=== PATIENT | male | born 1975 | race Native Hawaiian/Other Pacific Islander ===

== ENCOUNTER 2017-06-19 14:07 | Emergency (ER) | payer MEDICAID, MEDICARE ==
[2017-06-19 14:32] VITALS: BP 167/78; PULSE 107; RESP 18; TEMP 97.7
--- NOTE | 2017-06-19 15:03 | ED ---
General Adult HPI - General Chief complaint: Psychiatric Symptoms Stated complaint: Mental Health Time Seen by Provider: 06/19/17 14:50 Source: patient, family, RN notes reviewed Mode of arrival: ambulatory Limitations: no limitations - History of Present Illness Initial comments: 42-year-old male presents to the emergency department brought by his grandmother. The patient decided to go for a walk last night and woke up he was at home so she filed a police report. She states that he was then picked up by the police and they brought him here. The patient does suffer from schizophrenia he sees his psychiatrist. He denies any suicidal or homicidal thoughts. He states in the past he has heard voices but he is currently not hearing voices. He states he almost has a symptoms clearly at this point. The grandmother states that she was concerned because he just left the house and just decided to go for walk and he normally tells or where he is going. She states he has not expressed any suicidal or homicidal ideation to her. He denies any suicidal or homicidal ideation at this time. They state that they came here because he is currently being worked up with [facility] in the grandmother was concerned because he just decided to leave the house without his cell phone and that made her nervous.Patient denies any recent fever, chills, shortness of breath, chest pain, back pain, abdominal pain, nausea vomiting, numbness or tingling, dysuria or hematuria, constipation or diarrhea, headaches or visual changes, or any other current symptoms. - Related Data Home Medications Medication Instructions Recorded Confirmed Benztropine Mesylate [Cogentin] 2 mg PO BID 06/19/17 06/19/17 Paliperidone IM [Invega Sustenna] 234 mg IM Q28D 06/19/17 06/19/17 Allergies Allergy/AdvReac Type Severity Reaction Status Date / Time Penicillins Allergy Unknown Verified 06/19/17 14:38 Review of Systems ROS Statement: Those systems with pertinent positive or pertinent negative responses have been documented in the HPI. ROS Other: All systems not noted in ROS Statement are negative. Past Medical History Past Medical History: No Reported History History of Any Multi-Drug Resistant Organisms: None Reported Past Surgical History: No Surgical Hx Reported Past Psychological History: Anxiety, Bipolar, Depression, Panic Disorder, Schizoaffective Disorder, Schizophrenia Smoking Status: Current every day smoker Past Alcohol Use History: Daily Past Drug Use History: None Reported General Exam Limitations: no limitations General appearance: alert, in no apparent distress ENT exam: Present: normal exam, mucous membranes moist Neck exam: Present: normal inspection. Absent: tenderness, meningismus, lymphadenopathy Respiratory exam: Present: normal lung sounds bilaterally. Absent: respiratory distress, wheezes, rales, rhonchi, stridor Cardiovascular Exam: Present: regular rate, normal rhythm, normal heart sounds. Absent: systolic murmur, diastolic murmur, rubs, gallop, clicks Extremities exam: Present: normal inspection, full ROM, normal capillary refill. Absent: tenderness, pedal edema, joint swelling, calf tenderness Back exam: Present: normal inspection Neurological exam: Present: alert, oriented X3 Psychiatric exam: Present: normal affect, normal mood. Absent: homicidal ideation, suicidal ideation Skin exam: Present: warm, dry, intact, normal color. Absent: rash Course Vital Signs 06/19/17 14:28 Temperature 97.7 F Pulse Rate 107 H Respiratory 18 Rate Blood Pressure 167/78 O2 Sat by Pulse 99 Oximetry Medical Decision Making - Medical Decision Making 42-year-old male presents for leaving the house. This time he has not suicidal homicidal milligram a CT is not suicidal or homicidal. The grandmother states she feels control taking patient home and he does contract to safety. They do not want to see psych. They're hoping that we could find him quick placement to live somewhere else. At this time he has a follow-up appointment with psychiatrist tomorrow. We did discuss return parameters. We did discuss all the patient and family's questions. He stated he understood. They'll be discharged. Disposition Clinical Impression: Chronic schizophrenia Disposition: HOME SELF-CARE Condition: Stable Instructions: Schizophrenia (ED), Suicide Prevention for Adults (ED) Additional Instructions: Please use medication as discussed. Please follow up with family doctor if symptoms have not improved over the next two days. Please return to the emergency room if your symptoms increase or worsen or for any other concerns. Please return to the emergency department immediately if he developed any suicidal or homicidal thoughts follow-up with your psychiatrist in the morning. Referrals: Suraj Padgett DO [Primary Care Provider] - 1-2 days Time of Disposition: 15:02
== END 2017-06-19 15:07 | disposition home or self-care (01) ==
LOC: EC 14:07
DX: F20.9 Schizophrenia, unspecified (principal); F17.200 Nicotine dependence, unspecified, uncomplicated; Z79.899 Other long term (current) drug therapy; Z88.0 Allergy status to penicillin
CPT/HCPCS: 99283

== ENCOUNTER → 2019-09-26 | Outpatient (CLI) | payer MEDICARE ==
[2019-09-26 20:26] LABS: HIV 1 AB Non-Reactive (Non-Reactive); HIV 2 AB Non-Reactive (Non-Reactive); HIV AB P24 Non-Reactive (Non-Reactive); HIV P24 AG Non-Reactive (Non-Reactive)
[2019-09-26 21:45] LABS: Hepatitis B Surface Antigen Non-Reactive (Non-Reactive); Hepatitis C IgG Antibody Non-Reactive (Non-Reactive)
== END | disposition home or self-care (01) ==
LOC: LABMAIN 13:38
PROVIDERS: ATTEND Family Medicine
DX: Z11.4 Encounter for screening for human immunodeficiency virus [HIV] (principal); Z11.8 Encounter for screening for other infectious and parasitic diseases
CPT/HCPCS: 36415; 86803; 87340; 87390

== ENCOUNTER 2024-06-27 00:44 | Inpatient (IN) | payer MEDICARE ==
[2024-06-27] MEDS: SODIUM CHLORIDE 0.9% 1,000 ML IV ONE (01:17)
[2024-06-27 01:18] LABS: Basophils % (A) 0 %; Eosinophils # (A) 0.1 k/uL (0-0.7); Eosinophils % (A) 1 %; HCT 49.9 % (39.0-53.0); HGB 17.4 gm/dL (13.0-17.5); Lymphocytes % (A) 29 %; MCH 35.2 pg (25.0-35.0); MCHC 34.9 g/dL (31.0-37.0); Mean Platelet Volume 8.3; Monocytes # (A) 0.8 k/uL (0-1.0); Monocytes % (A) 8 %; Neutrophils # (A) 6.3 k/uL (1.3-7.7); Neutrophils % (A) 60 %; Platelet Count 193 k/uL (150-450); RBC 4.94 m/uL (4.30-5.90); RDW 12.7 % (11.5-15.5); WBC 10.5 k/uL (3.8-10.6)
--- NOTE | 2024-06-27 01:54 | ED ---
General Adult HPI - General Chief complaint: Fall Stated complaint: ETOH Time Seen by Provider: 06/27/24 00:48 Source: patient, EMS, RN notes reviewed, old records reviewed Mode of arrival: EMS Limitations: no limitations - History of Present Illness Initial comments: 49-year-old male presents with alcohol intoxication, unsteady gait. Patient had apparently tripped and fallen down several stairs. Patient denies falling downstairs, he does admit to minor fall. Denies head or neck trauma. Denies any pain complaint. He is intoxicated and admits to drinking alcohol today. He states he is unsteady on his feet. Denies headache. Denies neck pain. Denies chest or abdominal pain. - Related Data Previous Rx's Medication Instructions Recorded Benztropine Mesylate [Cogentin] 0.5 mg PO BID #28 tab 07/23/17 LORazepam [Ativan] 1 mg PO TID PRN #42 tab 07/23/17 Paliperidone IM [Invega Sustenna] 156 mg IM QMONTH #1 syr 07/23/17 Paliperidone [Paliperidone ER] 9 mg PO DAILY #14 tab.er.24 07/23/17 Allergies Allergy/AdvReac Type Severity Reaction Status Date / Time Penicillins Allergy Unknown Verified 06/21/17 09:58 Review of Systems ROS Statement: Those systems with pertinent positive or pertinent negative responses have been documented in the HPI. ROS Other: All systems not noted in ROS Statement are negative. Past Medical History Past Medical History: No Reported History History of Any Multi-Drug Resistant Organisms: None Reported Past Surgical History: No Surgical Hx Reported Past Psychological History: Anxiety, Bipolar, Depression, Panic Disorder, Schizoaffective Disorder, Schizophrenia Past Alcohol Use History: Daily Past Drug Use History: None Reported General Exam General appearance: alert, in no apparent distress, appears intoxicated Head exam: Present: atraumatic, normocephalic Eye exam: Present: normal appearance, PERRL ENT exam: Present: normal exam Neck exam: Present: normal inspection. Absent: tenderness, meningismus Respiratory exam: Present: normal lung sounds bilaterally. Absent: respiratory distress, wheezes Cardiovascular Exam: Present: regular rate, normal rhythm GI/Abdominal exam: Present: soft. Absent: distended, tenderness, guarding Extremities exam: Present: normal inspection, normal capillary refill Neurological exam: Present: alert, oriented X3, CN II-XII intact. Absent: normal gait, motor sensory deficit Psychiatric exam: Present: normal affect, normal mood Skin exam: Present: warm, dry, intact Course Vital Signs 06/27/24 06/27/24 06/27/24 00:45 02:50 04:00 Temperature 97.6 F Pulse Rate 101 H 95 92 Respiratory 18 18 18 Rate Blood Pressure 115/77 115/83 101/75 O2 Sat by Pulse 94 L 99 95 Oximetry 06/27/24 06:19 Temperature Pulse Rate 95 Respiratory 18 Rate Blood Pressure 127/97 O2 Sat by Pulse 96 Oximetry Medical Decision Making - Medical Decision Making Was pt. sent in by a medical professional or institution (, [facility], [facility] [facility], urgent care, hospital, or correction...) When possible be specific @ -No Did you speak to anyone other than the patient for history (EMS, parent, family, police, friend...)? What history was obtained from this source @ -No Did you review nursing and triage notes (agree or disagree)? Why? @ -I reviewed and agree with nursing and triage notes Were old charts reviewed (outside hosp., previous admission, EMS record, old EKG, old radiological studies, urgent care reports/EKG's, correction records)? Report findings @ -No old charts were reviewed Differential Diagnosis (chest pain, altered mental status, abdominal pain women, abdominal pain men, vaginal bleeding, weakness, fever, dyspnea, syncope, headache, dizziness, GI bleed, back pain, seizure, CVA, palpatations, mental health, musculoskeletal)? @ -Not applicable EKG interpreted by me (3pts min.). @ -[Sinus rhythm, incomplete right bundle branch block, rate of 90, NV interval 144, QRS duration 114, QTc 424 X-rays interpreted by me (1pt min.). @ -None done CT interpreted by me (1pt min.). @ -None done U/S interpreted by me (1pt. min.). @ -None done What testing was considered but not performed or refused? (CT, X-rays, U/S, labs)? Why? @ -None What meds were considered but not given or refused? Why? @ -None Did you discuss the management of the patient with other professionals (professionals i.e. , PA, WAX BLENDER, lab, RT, psych nurse, social service liaison, shipping inspector, teacher, systems support officer, ed case manager)? Give summary @ -[Dr. Smith Was smoking cessation discussed for >3mins.? @ -No Was critical care preformed (if so, how long)? @ -No Were there social determinants of health that impacted care today? How? (Homelessness, low income, unemployed, alcoholism, drug addiction, transportation, low edu. Level, literacy, decrease access to med. care, usp, rehab)? @ -No Was there de-escalation of care discussed even if they declined (Discuss DNR or withdrawal of care, Hospice)? DNR status @ -No What co-morbidities impacted this encounter? (DM, HTN, Smoking, COPD, CAD, Cancer, CVA, ARF, Chemo, Hep., AIDS, mental health diagnosis, sleep apnea, morbid obesity)? @ -[Alcohol abuse Was patient admitted / discharged? Hospital course, mention meds given and route, prescriptions, significant lab abnormalities, going to OR and other pertinent info. @ -49-year-old male presenting with alcohol intoxication, unsteady gait. No limb ataxia. No focal neurologic findings. Stable vitals. Patient given IV fluids. I did obtain laboratory testing and alcohol level. His alcohol level is 236. He has a sodium of 126 and a potassium of 2.9. He is given IV fluids and potassium replacement. He will be admitted for hydration and symptom control. Undiagnosed new problem with uncertain prognosis? @ -No Drug Therapy requiring intensive monitoring for toxicity (Heparin, Nitro, Insulin, Cardizem)? @ -No Were any procedures done? @ -No Diagnosis/symptom? @ -[Alcohol intoxication, hyponatremia, hypokalemia Acute, or Chronic, or Acute on Chronic? @ -acute Uncomplicated (without systemic symptoms) or Complicated (systemic symptoms)? @ -Default Side effects of treatment? @ -No Exacerbation, Progression, or Severe Exacerbation? @ -No Poses a threat to life or bodily function? How? (Chest pain, USA, DC, pneumonia, PE, COPD, DKA, ARF, appy, cholecystitis, CVA, Diverticulitis, Homicidal, Suicidal, threat to staff... and all critical care pts) @ -No - Lab Data Result diagrams: 06/27/24 01:09 06/27/24 01:55 Lab Results 06/27/24 06/27/24 Range/Units 01:09 01:55 WBC 10.5 (3.8-10.6) k/uL RBC 4.94 (4.30-5.90) m/uL Hgb 17.4 (13.0-17.5) gm/dL Hct 49.9 (39.0-53.0) % MCV 101.0 H (80.0-100.0) fL MCH 35.2 H (25.0-35.0) pg MCHC 34.9 (31.0-37.0) g/dL RDW 12.7 (11.5-15.5) % Plt Count 193 (150-450) k/uL MPV 8.3 Neutrophils % 60 % Lymphocytes % 29 % Monocytes % 8 % Eosinophils % 1 % Basophils % 0 % Neutrophils # 6.3 (1.3-7.7) k/uL Lymphocytes # 3.0 (1.0-4.8) k/uL Monocytes # 0.8 (0-1.0) k/uL Eosinophils # 0.1 (0-0.7) k/uL Basophils # 0.0 (0-0.2) k/uL Sodium 126 L (137-145) mmol/L Potassium 2.9 L (3.5-5.1) mmol/L Chloride 78 L (98-107) mmol/L Carbon Dioxide 35 H (22-30) mmol/L Anion Gap 13 mmol/L BUN 13 (9-20) mg/dL Creatinine 1.06 (0.66-1.25) mg/dL Est GFR (CKD-EPI)AfAm >90 (>60 ml/min/1.73 sqM) Est GFR (CKD-EPI)NonAf 84 (>60 ml/min/1.73 sqM) Glucose 88 (74-99) mg/dL Calcium 8.2 L (8.4-10.2) mg/dL Total Bilirubin 1.0 (0.2-1.3) mg/dL AST 77 H (17-59) U/L ALT 30 (4-49) U/L Alkaline Phosphatase 70 (38-126) U/L Total Protein 6.2 L (6.3-8.2) g/dL Albumin 3.7 (3.5-5.0) g/dL Serum Alcohol 236 H* mg/dL Disposition Clinical Impression: Alcohol intoxication, Hypokalemia, Hyponatremia Disposition: ADMITTED IP TO THIS HOSP Condition: Stable Is patient prescribed a controlled substance at d/c from ED?: No Referrals: Suraj Padgett DO [Primary Care Provider] - 1-2 days Time of Disposition: 06:25
[2024-06-27 02:24] LABS: ALT 30 U/L (4-49); AST 77 U/L (17-59); African American GFR (CKD) >90 (>60 ml/min/1.73 sqM); Albumin 3.7 g/dL (3.5-5.0); Alkaline Phosphatase 70 U/L (38-126); Anion Gap 13 mmol/L; Blood Urea Nitrogen 13 mg/dL (9-20); Calcium 8.2 mg/dL (8.4-10.2); Carbon Dioxide 35 mmol/L (22-30); Chloride 78 mmol/L (98-107); Glucose 88 mg/dL (74-99); Non-African American GFR(CKD) 84 (>60 ml/min/1.73 sqM); Potassium 2.9 mmol/L (3.5-5.1); Sodium 126 mmol/L (137-145); Total Protein 6.2 g/dL (6.3-8.2)
[2024-06-27 02:34] LABS: Alcohol 236 mg/dL
[2024-06-27] MEDS: SODIUM CHLORIDE 0.9% 1,000 ML IV SCH (03:05)
[2024-06-27] MEDS: POTASSIUM CHLORIDE ER 20 MEQ TAB.ER PO STA (03:51)
[2024-06-27] MEDS: ONDANSETRON 4 MG/2 ML VIAL IVP STA (04:07)
[2024-06-27] MEDS: POTASSIUM CHLORIDE 10 MEQ in WATER FOR INJECTION 1 100ML.BAG IVPB SCH (04:07)
[2024-06-27] MEDS ORDERED: LORazepam 2 MG/ML INJ IV PRN ×3 (06:21)
[2024-06-27] MEDS ORDERED: NALOXONE 0.4 MG/ML 1 ML VIAL IV PRN (06:22)
[2024-06-27] MEDS ORDERED: ONDANSETRON 4 MG/2 ML VIAL IVP PRN (06:22)
[2024-06-27] MEDS: ENOXAPARIN 40 MG/0.4 ML SYRINGE SQ SCH (11:02)
[2024-06-27] MEDS: MULTIVITAMINS, THERA 1 EACH TAB PO SCH (11:03)
[2024-06-27] MEDS: PANTOPRAZOLE 40 MG TABLET PO SCH (11:03)
[2024-06-27] MEDS: THIAMINE 100 MG TAB PO SCH (11:03)
[2024-06-27] MEDS: NICOTINE 21MG/24HR PATCH TRANSDERM SCH (11:03)
[2024-06-27 11:07] LABS: African American GFR (CKD) >90 (>60 ml/min/1.73 sqM); Anion Gap 5 mmol/L; Blood Urea Nitrogen 10 mg/dL (9-20); Calcium 8.1 mg/dL (8.4-10.2); Carbon Dioxide 38 mmol/L (22-30); Chloride 82 mmol/L (98-107); Glucose 83 mg/dL (74-99); Non-African American GFR(CKD) >90 (>60 ml/min/1.73 sqM); Sodium 125 mmol/L (137-145)
[2024-06-27 11:22] LABS: Potassium 2.6 mmol/L (3.5-5.1)
[2024-06-27] MEDS: CALCIUM CARBONATE 500 MG CHEWABLE PO SCH (11:46)
[2024-06-27] MEDS: POTASSIUM CHLORIDE ER 20 MEQ TAB.ER PO SCH (13:04)
[2024-06-27] MEDS: METOCLOPRAMIDE 10 MG TAB PO SCH (13:04)
[2024-06-27] MEDS: ACETAMINOPHEN TAB 325 MG TAB PO PRN (13:04)
--- NOTE | 2024-06-27 14:25 | P.CN ---
Psychiatric Consult - . Consult date: 06/27/24 Consult:: 06/27/24 14:16 IDENTIFYING DATA: This patient is a 49-year-old male, currently living with his grandmother who is also his guardian, on disability REASON FOR REFERRAL: Psychiatry was consulted for petitioned by [facility] HISTORY OF PRESENT ILLNESS: The patient presented to the hospital on 06/27 with a chief complaint of a fall. Patient reportedly fell down several stairs at home. Alcohol level was elevated at 236. Labs revealed hyponatremia with a sodium of 126, hypokalemia with potassium at 2.6 and elevated AST at 77. EKG showed sinus rhythm, incomplete right bundle branch block, QTc 424. Patient was petitioned by his grandmother who is also his guardian which states, "Jefe not eating or very little. Jefe is drinking heavily, refusing injections. Yelling and swearing at grandmother. Refusing mental and physical health treatment." Patient seen and evaluated at bedside to which he states drinking a pint a day. Patient reports missing his appointment last week for his injection due to him having issues with his truck. Patient appeared precontemplative as he did not feel like he has an issue with alcohol and he does not wish to seek help for this as well. He has gone to rehab once however he did not find it effective. He reports drinking heavily for many years and he does not feel like it is a problem for him. Patient strongly encouraged to consider substance abuse treatment. Patient was agreeable with receiving his Prolixin DEC shot while he is in the hospital and will follow-up with [facility] outpatient. At this time patient denies any suicidal or homical ideations, intent or plan. Patient denies any visual hallucinations and denies any delusions however he reports chronic, stable auditory hallucinations that have not worsened since he missed his shot last week. Patients admits to using alcohol and cannabis and smokes 1 pack/day of cigarettes PAST PSYCHIATRIC HISTORY: Patient has a a history of schizophrenia. Patient is currently on Prolixin DEC 50 mg IM every 2 weeks, last received on 06/04. Thaddeus meraz reports being on "every single psychotropic medication" and he has not found any super effective however he reports stable symptoms. Patient's grandmother is his guardian. Patient reports 5-6 past inpatient hospitalizations but denies any past suicide attempts. Patient sees Dr. Ferguson at [facility]. PAST MEDICAL HISTORY: Denies. ALLERGIES: as per EMR. CHEMICAL DEPENDENCY HISTORY: as per HPI. FAMILY PSYCHIATRIC/SUBSTANCE USE HISTORY: Denies SOCIAL HISTORY: Patient currently lives with his grandmother who is also his guardian. He is single and has no children. Highest level of education is 12th grade. MENTAL STATUS EXAM: General Appearance: Patient appears to be stated age is alert, pleasant, and cooperative. Patient appears to have poor hygiene and grooming wearing hospital gown with fair eye contact. Behavior: Patient is calmly lying in bed without any agitated behavior. Speech: Patient's speech is fluent and nonpressured. Mood/Affect: Patient reports their mood is "okay", affect is congruent, constricted Suicidality/Homicidality: Patient denies having any suicidal or homicidal ideation intent or plan. Perceptions: Patient denies any visual hallucinations but reports stable chronic auditory hallucinations however patient did not appear to be responding to internal stimuli during encounter Though content/process: There is no evidence of any delusional thought content and thought process is linear and goal-directed. Memory and concentration: AOX3, grossly intact for the purposes of this session. Can spell "WORLD" backwards Judgment and insight: Poor IMPRESSIONS: Schizophrenia Alcohol use disorder, severe Cannabis use disorder Nicotine dependence PLAN: -At this time patient DOES NOT meet criteria for inpatient psychiatric admission. -Would recommend the following medication changes/additions: Prolixin decanoate 50 mg IM given today as patient missed his last injection last week. Next dose will be due on 07/11 -CIWA protocol with PRN Ativan for alcohol withdrawal. Continue to monitor vital signs. -Can discontinue 1:1 sitter at this time as patient is not currently an imminent threat to themselves -tube worker to provide patient with outpatient mental health/psychiatry resources for appropriate follow up upon discharge. Discussed with case management regarding setting up an appointment with Dr. Ferguson at [facility] upon discharge -Microbiology Teacher spoke with patient about substance abuse and the harmful effects on medical and mental health, patient verbally understood and agreed. -tube worker to provide patient substance use treatment resources including AA/NA meetings in the community. -tube worker to provide patient with access line number to call for inpatient substance rehab -Communicated plan to patient's nurse -Psychiatry will sign off at this time -Please contact with any questions.
[2024-06-27] MEDS: fluPHENAZine DECANOATE 25 MG/ML 5ML MDV IM ONE (15:06)
--- NOTE | 2024-06-27 15:28 | P.HPIM ---
History of Present Illness H&P Date: 06/27/24 Chief Complaint: Alcohol intoxication This is a 49-year-old patient, follows with Dr. Padgett. Extensive psychiatry history of schizophrenia, bipolar, panic disorder. Does follow with [facility] with Dr. Ferguson. Lives with his grandmother. On disability because of schizophrenia. Longstanding alcohol drinker. Patient not show I called to the hospital. He feels his grandmother r called the EMS. Per the EMS run sheet: Patient was sitting outside. Patient had earlier falling down 7-10 stairs in the evening. There is no loss of consciousness. And grandmother requested the transport to the hospital. Patient denies any pain. In the head or neck. No focal wea kness. Longstanding alcohol drinker. Drinks a pint a day for close to 21 years. Has been to rehab in the remote past. Has a cough. Has been having nausea vomiting. Some wheezing. Some congested cough. Clear sputum. Patient does complain of anxiety depression. No suicidal. Patient's grandmother has petitioned the patient. Psychiatry consulted. Review of systems: GEN.: Tired EYES: None HEENT: None NECK: None RESPIRATORY: [Short of breath and cough CARDIOVASCULAR: None GASTROINTESTINAL: Nausea vomiting e GENITOURINARY: None MUSCULOSKELETAL: None LYMPHATICS: None HEMATOLOGICAL: None PSYCHIATRY: Bit anxious e NEUROLOGICAL: None Social history: Lives at home with his grandmother. Is on disability because of schizophrenia. Smokes a pack a day for close to 27 years. Drinks a pint of vodka pretty much daily since the age of 43. Physical examination: VITAL SIGNS: 98.1, 105, 16, 119/79, 96% room GENERAL: [Significant bed. A bit anxious. Congested cough. Throwing up EYES: Pupils equal. Conjunctiva babar l. HEENT: External appearance of nose and ears normal, oral cavity grossly normal. NECK: JVD not raised; masses not palpable. HEART: First and second heart sounds are normal; no edema. LUNGS: Respiratory rate increased, decreased breath sound prolonged expiration some wheezing. ABDOMEN: Soft, nontender, liver spleen not palpable, no masses palpable. PSYCH: [Alert and oriented x3; mood and affect anxious. MUSCULOSKELETAL:No Clubbing/cyanosis;muscles-grossly intact NEUROLOGICAL: Cranial nerves grossly intact; no facial asymmetry, power and sensation grossly intact. Some tremors LYMPHATICS: No lymph nodes palpable in the axilla and neck INVESTIGATIONS, reviewed in the clinical context: June 27, 2024: Sodium 125 potassium 2.6 BUN 10 creatinine 0.92 June 27: Sodium 126 potassium 2.9 serum alcohol 236 white count 10.5 h emoglobin 17.4 platelets 193 EKG tracing personally reviewed by me-normal sinus rhythm. Right bundle jose block, incomplete Assessment plan: -Acute alcohol intoxication causing metabolic encephalopathy on presentation patient did not remember how he got here. Admission alcohol level greater than 400. Will watch for withdrawals. -Patient fell about 7-9 stairs as reported by the grandmother to the EMS. Has no focal weakness or pain. Will get a CT scan of the head and CT scan cervical spine. -Alcohol use disorder patient is been drinking alcohol for close to 21 years. In the remote past has had to 1 chance at rehab. Thiamine. Multivitamin. -Acute COPD exacerbation in a current smoker DuoNeb. -Severe alcoholic gastritis resulting in nausea vomiting PPI. Reglan. Full liquid diet -Chronic nicotine dependence, cigarette smoker Nicotine patch -Severe hypokalemia Replace potassium -Bipolar, schizophrenia Patient's grandmother has petitioned the patient. Not been taking his medications. Drinking alcohol. Shouting at home. Psychiatry consulted. -Hyponatremia likely hypovolemic. Patient been having nausea vomiting. Decreased oral intake. Lactated Ringer's Past Medical History Past Medical History: No Reported History History of Any Multi-Drug Resistant Organisms: None Reported Past Surgical History: No Surgical Hx Reported Past Psychological History: Anxiety, Bipolar, Depression, Panic Disorder, Schizoaffective Disorder, Schizophrenia Past Alcohol Use History: Daily Past Drug Use History: None Reported Medications and Allergies Home Medications Medication Instructions Recorded Confirmed Type fluPHENAZine decanoate [Prolixin 50 mg IM [id number] 06/27/24 06/27/24 History Decanoate] Allergies Allergy/AdvReac Type Severity Reaction Status Date / Time Penicillins Allergy Unknown Verified 06/27/24 07:08 Physical Exam Vitals: Vital Signs Temp Pulse Resp BP Pulse Ox 06/27/24 07:22 98.1 F 105 H 16 119/79 96 06/27/24 06:19 95 18 127/97 96 06/27/24 04:00 92 18 101/75 95 06/27/24 02:50 95 18 115/83 99 06/27/24 00:45 97.6 F 101 H 18 115/77 94 L Intake and Output 06/26/24 06/27/24 06/27/24 22:59 06:59 14:59 Other: Weight 65.771 kg Results CBC & Chem 7: 06/27/24 01:09 06/27/24 10:36 Labs: Abnormal Lab Results - Last 24 Hours (Table) 06/27/24 06/27/24 Range/Units 01:09 01:55 MCV 101.0 H (80.0-100.0) fL MCH 35.2 H (25.0-35.0) pg Sodium 126 L (137-145) mmol/L Potassium 2.9 L (3.5-5.1) mmol/L Chloride 78 L (98-107) mmol/L Carbon Dioxide 35 H (22-30) mmol/L Calcium 8.2 L (8.4-10.2) mg/dL AST 77 H (17-59) U/L Total Protein 6.2 L (6.3-8.2) g/dL Serum Alcohol 236 H* mg/dL
--- NOTE | 2024-06-27 17:36 | CT ---
EXAMINATION TYPE: CT brain juana wo con DATE OF EXAM: 06/27/2024 COMPARISON: 12/27/2010 HISTORY: fall CT DLP: 1299.3 mGycm, Automated exposure control for dose reduction was used. CONTRAST: Patient injected with 0 mL of Isovue 300. CT of the brain is performed utilizing 3 mm thick sections through the posterior fossa and 3 mm thick sections through the remaining calvarium. Study is performed within 24 hours of arrival to the hospital. No abnormal hyperdensity is present to suggest an acute intracranial hemorrhage. No mass lesion is evident. No acute infarcts are evident. Ventricles and sulci are appropriate for the patient age. There is a cavum septum callosum and cavum vergae, normal variants. Paranasal sinuses and mastoid air cells within the [id number] are clear. IMPRESSIONS: 1. No acute intracranial process. Follow-up MRI can be performed as clinically indicated. CT cervical spine. COMPARISON: None CT of the cervical spine is performed in the axial plane at 2 mm thick sections. Reconstructed image s in the coronal, and sagittal plane are reviewed on the computer. No acute fractures are evident. Vertebral body alignment is normal. Disc space narrowing is present diffusely throughout the cervical spine. Vertebral body heights are preserved. No spinal canal stenosis is evident. No neural foraminal stenosis is evident. IMPRESSION: 1. Diffuse degenerative disc changes with narrowing of disc height. 2. No acute osseous abnormality cervical spine [facility], Workstation: [facility], 06/27/2024 5:33 PM
[2024-06-27] MEDS: IPRATROPIUM-ALBUTEROL 3 ML NEB INHALATION SCH (19:30)
[2024-06-27] MEDS: MAGNESIUM OXIDE 400 MG TAB PO SCH (21:13)
[2024-06-28 04:51] LABS: ALT 34 U/L (4-49); AST 96 U/L (17-59); African American GFR (CKD) >90 (>60 ml/min/1.73 sqM); Albumin/Globulin Ratio 1.7; Alkaline Phosphatase 95 U/L (38-126); Anion Gap 3 mmol/L; Blood Urea Nitrogen 8 mg/dL (9-20); Calcium 8.7 mg/dL (8.4-10.2); Carbon Dioxide 38 mmol/L (22-30); Chloride 89 mmol/L (98-107); Globulin 2.4 g/dL; Glucose 89 mg/dL (74-99); Magnesium 1.7 mg/dL (1.6-2.3); Non-African American GFR(CKD) >90 (>60 ml/min/1.73 sqM); Potassium 2.8 mmol/L (3.5-5.1); Sodium 130 mmol/L (137-145); Total Bilirubin 1.9 mg/dL (0.2-1.3); Total Protein 6.4 g/dL (6.3-8.2)
[2024-06-28] MEDS: POTASSIUM CHLORIDE ER 20 MEQ TAB.ER PO SCH (06:43)
[2024-06-28 10:14] VITALS: BMI 19.1
[2024-06-28 13:43] VITALS: BP 109/75; PULSE 96; RESP 20; TEMP 97.7
--- NOTE | 2024-06-28 20:51 | P.DS ---
Providers Date of admission: 06/27/24 06:23 Expected date of discharge: 06/28/24 Attending physician: Fredy Smith Consults: 06/27/24 09:12 Consult Physician Routine Consulting Provider: Psychiatry - [facility] Psychiatry Consult Reason/Comments: Petitioned by [facility] Do you want consulting provider notified?: Yes Primary care physician: [facility] Course: Chief Complaint: Alcohol intoxication This is a 49-year-old patient, follows with Dr. Padgett. Extensive psychiatry history of schizophrenia, bipolar, panic disorder. Does follow with [facility] with Dr. Ferguson. Lives with his grandmother. On disability because of schizophrenia. Longstanding alcohol drinker. Patient not show I called to the hospital. He feels his grandmother r called the EMS. Per the EMS run sheet: Patient was sitting outside. Patient had earlier falling down 7-10 stairs in the evening. There is no loss of consciousness. And grandmother requested the transport to the hospital. Patient denies any pain. In the head or neck. No focal weakness. Longstanding alcohol drinker. Drinks a pint a day for close to 21 years. Has been to rehab in the remote past. Has a cough. Has been having nausea vomiting. Some wheezing. Some congested cough. Clear sputum. Patient does complain of anxiety depression. No suicidal. Patient's grandmother has petitioned the patient. Psychiatry consulted. June 28: Patient doing well this morning. Did ambulate in the hallway. Did tolerate diet. Patient was offered different medications. At this point he does not want to take anything to alcohol. He thinks he may continue drinking. Told to follow-up at [facility]. Cleared by psychiatry. Potassium was 2.8. 80 mEq of potassium was replaced Social history: Lives at home with his grandmother. Is on disability because of schizophrenia. Smokes a pack a day for close to 27 years. Drinks a pint of vodka pretty much daily since the age of 43. Physical examination: VITAL SIGNS: 97.7, 96, 20, 109 x 75, 99% room air GENERAL:. H the bed, comfortable EYES: Pupils equal. Conjunctiva babar l. HEENT: External appearance of nose and ears normal, oral cavity grossly normal. NECK: JVD not raised; masses not palpable. HEART: First and second heart sounds are normal; no edema. LUNGS: Respiratory rate increased, decreased breath sound prolonged expiration some wheezing. ABDOMEN: Soft, nontender, liver spleen not palpable, no masses palpable. PSYCH: [Alert and oriented x3; mood and affect anxious. MUSCULOSKELETAL:No Clubbing/cyanosis;muscles-grossly intact INVESTIGATIONS, reviewed in the clinical context: June 27, 2024: Sodium 125 potassium 2.6 BUN 10 creatinine 0.92 June 27: Sodium 126 potassium 2.9 serum alcohol 236 white count 10.5 hemoglobin 17.4 platelets 193 EKG tracing personally reviewed by me-normal sinus rhythm. Right bundle jose block, incomplete Assessment plan: -Acute alcohol intoxication causing metabolic encephalopathy on presentation patient did not remember how he got here. Admission alcohol level greater than 400. Will watch for withdrawals. -Patient fell about 7-9 stairs as reported by the grandmother to the EMS. Has no focal weakness or pain. Will get a CT scan of the head and CT scan cervical spine. -Alcohol use disorder patient is been drinking alcohol for close to 21 years. In the remote past has had to 1 chance at rehab. Thiamine. Multivitamin. -Acute COPD exacerbation in a current smoker DuoNeb. -Severe alcoholic gastritis resulting in nausea vomiting PPI. Reglan. Full liquid diet -Chronic nicotine dependence, cigarette smoker Nicotine patch -Severe hypokalemia Potassium replaced -Bipolar, schizophrenia Seen by psychiatry. Follow-up outpatient with [facility] -Hyponatremia likely hypovolemic. Disposition: DC to family Past Medical History Past Medical History: No Reported History History of Any Multi-Drug Resistant Organisms: None Reported Past Surgical History: No Surgical Hx Reported Past Psychological History: Anxiety, Bipolar, Depression, Panic Disorder, Schizoaffective Disorder, Schizophrenia Past Alcohol Use History: Daily Past Drug Use History: None Reported Plan - Discharge Summary Discharge Rx Participant: No New Discharge Prescriptions: New Nicotine 21Mg/24Hr Patch [Habitrol] 1 patch TRANSDERM DAILY #30 patch Famotidine [Pepcid] 20 mg PO BID #60 tablet Thiamine [Vitamin B-1] 100 mg PO DAILY #30 tab Multivitamins, Thera [Multivitamin (formulary)] 1 each PO DAILY #60 tab Continue fluPHENAZine decanoate [Prolixin Decanoate] 50 mg IM [id number] Discharge Medication List fluPHENAZine decanoate [Prolixin Decanoate] 50 mg IM [id number] 06/27/24 [History] Famotidine [Pepcid] 20 mg PO BID #60 tablet 06/28/24 [Rx] Multivitamins, Thera [Multivitamin (formulary)] 1 each PO DAILY #60 tab 06/28/24 [Rx] Nicotine 21Mg/24Hr Patch [Habitrol] 1 patch TRANSDERM DAILY #30 patch 06/28/24 [Rx] Thiamine [Vitamin B-1] 100 mg PO DAILY #30 tab 06/28/24 [Rx] Follow up Appointment(s)/Referral(s): Suraj Padgett DO [Primary Care Provider] - 1-2 days [facility] [NON-STAFF] - 07/11/24 2:45 pm Discharge Disposition: HOME SELF-CARE
== END 2024-06-28 13:04 | disposition home or self-care (01) | DRG 917 ==
LOC: EC 00:44 → 4SSUR 06:23 → INTOOBSV 09:33 → OBSVTOIN 09:33 → 4SSUR 15:05 → UNDODISOB 06-28 15:55
PROVIDERS: ADMIT Hospitalist; ATTEND Hospitalist
DX: T51.0X1A Toxic effect of ethanol, accidental (unintentional), initial encounter (principal); G92.8 Other toxic encephalopathy; E87.1 Hypo-osmolality and hyponatremia; J44.1 Chronic obstructive pulmonary disease with (acute) exacerbation; K29.20 Alcoholic gastritis without bleeding; F10.129 Alcohol abuse with intoxication, unspecified; E87.6 Hypokalemia; F17.210 Nicotine dependence, cigarettes, uncomplicated; F25.9 Schizoaffective disorder, unspecified; F31.9 Bipolar disorder, unspecified; F41.0 Panic disorder [episodic paroxysmal anxiety]; I45.10 Unspecified right bundle-branch block; Y90.7 Blood alcohol level of 200-239 mg/100 ml; W10.9XXA Fall (on) (from) unspecified stairs and steps, initial encounter; Y92.009 Unspecified place in unspecified non-institutional (private) residence as the place of occurrence of the external cause
CPT/HCPCS: 36415; 70450; 72125; 80048; 80053; 80320; 83735; 85025; 93005; 96361; 96365; 96366; 96372; 96375; 99285